=== PATIENT | male | born 1935 | race Caucasian/White ===

== ENCOUNTER 2016-11-17 11:17 | Outpatient (CLI) | payer MEDICARE, OTHER ==
[2013-01-03 09:35] VITALS: BP 111/68
--- NOTE | 2016-11-17 19:06 | Diagnostic Imaging Report ---
LYNDA KEENE [facility] [address] [facility].[address] [address] Report Submission Date: November 17, 2016 4:05:41 PM CDT Patient Study Name: NATALIE KLEIN Date: November 17, 2016 11:39:30 AM CDT Modality Type: CR Gender: M Description: LOWER EXTREMITY : 37 Institution: [facility] Physician: LYNDA KEENE Right knee - three views Clinical history: Fall yesterday. Medial pain. Findings: Examination of the right knee in AP, lateral and sunrise views demonstrates postoperative changes status post right total knee replacement. Prosthetic components are normally seated in the [place] bony structures. There is no evident fracture. Joint effusion distends the suprapatellar bursa. Impression: 1. Joint effusion. 2. Postop replacement. 3. No fracture. Electronically signed on November 17, 2016 4:05:41 PM CDT by: Giuseppe QUINTANILLA
== END 2016-11-17 11:19 ==
LOC: RAD 11:17
PROVIDERS: ATTEND Family Medicine
DX: M25.561 Pain in right knee (principal)
CPT/HCPCS: 73562

== ENCOUNTER 2016-12-09 07:13 | Emergency (ER) | payer MEDICARE, OTHER ==
--- NOTE | 2016-12-09 10:29 | ED Physician Documentation ---
Lower Extremity Problem - HISTORIAN Historian: patient, spouse, child (son) - HPI Stated Complaint: right knee pain Chief Complaint: Lower Extremity Problem Additional Information: Right knee gives way when he tries to walk. Right TKR [address] Oniel Thomas. Pt denies fall to ground. However, notes he fell on November 11 or . She does not know how he landed. Saw Dr. Cool two weeks ago and began PT. Did not keep PT appt last week and cancelled appt today to come to ER. and son report a decrease in activity in general over the last six months. not involved in his care much as she says he doesn't want her to be. Doesn't go to appt's, for example. Doesn't know details of fall because he didn't/doesn't tell her. He has a walker at home, stored in basement since knee replacement. Location of Injury: R knee - ROS CONST: no problems - PAST HX Past History: other (HTN) Surgeries/Procedures: knee surgery (Jorge TKR's) Allergies/Adverse Reactions: Allergies Allergy/AdvReac Type Severity Reaction Status Date / Time No Known Allergies Allergy Verified 12/09/16 07:38 Home Medications: Ambulatory Orders Medication Instructions Recorded Lisinopril/Hydrochlorothiazide 20 mg PO DAILY 12/09/16 [Zestoretic] Piroxicam [Feldene] 10 mg PO DAILY 12/09/16 - SOCIAL HX Smoking History: non-smoker - FAMILY HX Family History: no significant history - VITAL SIGNS Vital Signs: Vital Signs Temp Pulse Resp BP Pulse Ox 111/68 01/03/13 09:31 - REVIEWED ASSESSMENTS Nursing Assessment Reviewed: Yes Vitals Reviewed: Yes Progress - Progress Progress: CT of the right knee Clinical history pain and swelling TECHNIQUE: Helical axial CT of the right knee was performed with sagittal and coronal reconstructions without contrast. FINDINGS: There is a large knee joint effusion. The right knee arthroplasty appears intact. No fracture is identified. Periarticular ossicles or bone fragments are identified but no clear fracture origin is seen. No obvious loosening of the prosthesis is seen. Streak artifact from the arthroplasty somewhat limits evaluation of the knee. Subcutaneous fat infiltration and skin thickening is present around the knee. There is vascular calcification around the knee. . Tibiofibular joint degenerative arthritis is present. IMPRESSION: Intact knee arthroplasty Right KNEE three views History : pain and swelling Technique: AP , LATERAL , SUNRISE Findings: Soft tissue swelling is present. A knee arthroplasty appears intact. Bone fragments are present lateral to the femoral component of the arthroplasty. A knee joint effusion is present. Impression : Joint effusion soft tissue swelling Intact arthroplasty Bone fragments lateral to the femoral component Consider CT for further evaluation Electronically signed on Dec 09, 2016 9:08:16 AM CDT by: Jayy Israel Urine clean. Doesn't remember being seen by provider. Doesn't recall conversations within this visit. Forgot he had right knee replacement though he remembered it earlier in this visit. ED Results Lab/Radiology - Orders Orders: ED Orders Category Date Time Status CT LEG W/O CONTRAST Stat Exams 12/09/16 Ordered KNEE 3 VIEWS [RAD] Stat Exams 12/09/16 Ordered UA [URINALYSIS] Routine Lab 12/09/16 Ordered Lower Extremity Problem - EXAM General Appearance: no distress Legs: bilateral: normal inspection, no evidence of injury Knees: right: joint effusion (cool, no discoloration, not tender to touch), bilateral: other (well healed surgical scars) Ankle: bilateral: no evidence of injury Neuro/Tendon: normal sensation, normal motor functions, no evidence tendon injury EENT: eye inspection normal, ENT inspection normal RESPIRATORY: no resp distress JOINT: effusion (see above) VASCULAR: no vascular compromise NEURO/PSYCH: CN's nml as tested, motor nml, sensation nml, other (one word answers for the most part. little eye contact wiht examiner or family) SKIN: warm/dry, normal color BACK: other (fluid movements w/o pain) Discharge Clincal Impression: Pain and swelling of right knee Referrals: Jl Cool MD [Primary Care Provider] - 2 Days Home Medications: Ambulatory Orders Lisinopril/Hydrochlorothiazide [Zestoretic] 20 mg PO DAILY 12/09/16 Piroxicam [Feldene] 10 mg PO DAILY 12/09/16 Condition: Fair Disposition: 01 HOME, SELF-CARE Decision to Admit: NO Decision Time: 10:25
[2016-12-09 11:00] VITALS: BP 164/77
--- NOTE | 2016-12-09 14:10 | Diagnostic Imaging Report ---
[facility] [address] [facility] [address] [address] Report Submission Date: Dec 09, 2016 9:08:16 AM CDT Patient Study Name: NATALIE KLEIN Date: Dec 09, 2016 7:53:45 AM CDT Modality Type: CR Gender: M Description: LOWER EXTREMITY : 37 Institution: [facility] Physician TERRA MARKHAM - ER Right KNEE three views History : pain and swelling Technique: AP , LATERAL , SUNRISE Findings: Soft tissue swelling is present. A knee arthroplasty appears intact. Bone fragments are present lateral to the femoral component of the arthroplasty. A knee joint effusion is present. Impression : Joint effusion soft tissue swelling Intact arthroplasty Bone fragments lateral to the femoral component Consider CT for further evaluation Electronically signed on Dec 09, 2016 9:08:16 AM CDT by: Jayy QUINTANILLA
--- NOTE | 2016-12-09 14:11 | Diagnostic Imaging Report ---
TERRA MARKHAM [facility] [address] [facility] [address] [place], [place]. [address] Report Submission Date: Dec 09, 2016 10:17:00 AM CDT Patient Study Name: NATALIE KLEIN Date: Dec 09, 2016 9:27:02 AM CDT Modality Type: CT\SR Gender: M Description: CT LEG W/O CONTRAST : 37 Institution: [facility] Physician: TERRA MARKHAM CT of the right knee Clinical history pain and swelling TECHNIQUE: Helical axial CT of the right knee was performed with sagittal and coronal reconstructions without contrast. FINDINGS: There is a large knee joint effusion. The right knee arthroplasty appears intact. No fracture is identified. Periarticular ossicles or bone fragments are identified but no clear fracture origin is seen. No obvious loosening of the prosthesis is seen. Streak artifact from the arthroplasty somewhat limits evaluation of the knee. Subcutaneous fat infiltration and skin thickening is present around the knee. There is vascular calcification around the knee. . Tibiofibular joint degenerative arthritis is present. IMPRESSION: Intact knee arthroplasty Large knee joint effusion Cellulitis Vascular calcification Periarticular bone fragments with no clear origin from the bones around the arthroplasty Electronically signed on Dec 09, 2016 10:17:00 AM CDT by: Jayy QUINTANILLA
== END 2016-12-09 10:40 | disposition home or self-care (01) ==
LOC: ED 07:13
DX: M25.561 Pain in right knee (principal)
CPT/HCPCS: 73562; 73700; 99283

== ENCOUNTER 2016-12-12 10:47 | Outpatient (CLI) | payer MEDICARE, OTHER ==
[2016-12-12 11:32] LABS: eGFR (African) 47; eGFR (Non-African) 39
== END 2016-12-12 10:50 ==
LOC: LAB 10:47
PROVIDERS: ATTEND Family Medicine
DX: M15.9 Polyosteoarthritis, unspecified (principal); I10 Essential (primary) hypertension
CPT/HCPCS: 36415; 80053; 80061

== ENCOUNTER 2017-01-23 08:57 | Outpatient (CLI) | payer MEDICARE, OTHER ==
--- NOTE | 2017-01-23 14:25 | Diagnostic Imaging Report ---
ANNIKA BARRAGAN [facility] [address] [facility] [address] [place] [address]. [address] Report Submission Date: Jan 23, 2017 10:07:35 AM CDT Patient Study Name: NATALIE KLEIN Date: Jan 23, 2017 9:27:23 AM CDT Modality Type: US Gender: M Description: US RETROPERITONEAL LIMIT : 37 Institution: [facility] Physician: ANNIKA BARRAGAN Examination: Ultrasound kidneys History: Chronic renal disease Comparison exams: None available Findings: Right kidney measures 9.4 cm in length. Left kidney measures 9.6 cm in length. No evidence for cortical mass bilaterally. Echogenic cortical margins. No hydronephrosis. Impression: Advanced medical renal disease. No evidence for cortical mass or obstruction. Electronically signed on Jan 23, 2017 10:07:35 AM CDT by: Elroy QUINTANILLA
== END 2017-01-23 09:00 ==
LOC: RAD 08:57
PROVIDERS: ATTEND Internal Medicine Nephrology
DX: N18.9 Chronic kidney disease, unspecified (principal)
CPT/HCPCS: 36415; 76775; 80069; 82306; 83970

== ENCOUNTER 2017-02-14 11:30 | Inpatient (IN) | payer MEDICARE, OTHER ==
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
[2017-02-14] MEDS ORDERED: SENNOSIDES/DOCUSATE SODIUM 1 EACH TABLET PO ONE (14:02)
[2017-02-14 17:21] VITALS: BMI 26.9
[2017-02-14] MEDS: SENNOSIDES/DOCUSATE SODIUM 1 EACH TABLET PO SCH (20:28)
[2017-02-14] MEDS: traMADol HCL 50 MG TABLET PO PRN (23:18)
[2017-02-15] MEDS: PANTOPRAZOLE SODIUM 40 MG TABLET PO SCH (06:17)
[2017-02-15] MEDS: traMADol HCL 50 MG TABLET PO PRN ×3 (06:40→20:47)
[2017-02-15] MEDS: ASPIRIN 325 MG TABLET PO SCH (09:50)
[2017-02-15] MEDS: LISINOPRIL 20 MG TABLET PO SCH (09:51)
[2017-02-15] MEDS: HYDROCHLOROTHIAZIDE 25 MG TABLET PO SCH (09:55)
[2017-02-15] MEDS: SENNOSIDES/DOCUSATE SODIUM 1 EACH TABLET PO SCH (20:47)
[2017-02-16] MEDS: traMADol HCL 50 MG TABLET PO PRN ×5 (01:48→20:33)
[2017-02-16] MEDS ORDERED: LISINOPRIL 20 MG TABLET ONE (04:05)
[2017-02-16] MEDS: PANTOPRAZOLE SODIUM 40 MG TABLET PO SCH (05:42)
[2017-02-16 07:21] LABS: BASOPHILS % 0.7 (0.0-1.5); EOSINOPHILS % 3.4 % (0.0-6.8); MEAN CORPUSCULAR HEMOGLOBIN 30.5 pg (28.0-34.0); MEAN CORPUSCULAR VOLUME 94.8 fl (80.0-100.0); NEUTROPHILS # 10.5 # k/uL (1.4-7.7)
[2017-02-16 07:28] LABS: eGFR (African) > 60; eGFR (Non-African) 56
[2017-02-16] MEDS: HYDROCHLOROTHIAZIDE 25 MG TABLET PO SCH (08:21)
[2017-02-16] MEDS: ASPIRIN 325 MG TABLET PO SCH (08:21)
[2017-02-16] MEDS: LISINOPRIL 20 MG TABLET PO SCH (08:21)
[2017-02-16] MEDS: SENNOSIDES/DOCUSATE SODIUM 1 EACH TABLET PO SCH (20:33)
[2017-02-17] MEDS: PANTOPRAZOLE SODIUM 40 MG TABLET PO SCH (06:05)
[2017-02-17] MEDS: traMADol HCL 50 MG TABLET PO PRN ×3 (06:14→19:03)
[2017-02-17] MEDS: LISINOPRIL 20 MG TABLET PO SCH (08:48)
[2017-02-17] MEDS: ASPIRIN 325 MG TABLET PO SCH (08:49)
[2017-02-17] MEDS: HYDROCHLOROTHIAZIDE 25 MG TABLET PO SCH (08:49)
[2017-02-17] MEDS: SENNOSIDES/DOCUSATE SODIUM 1 EACH TABLET PO SCH (19:06)
[2017-02-18] MEDS: traMADol HCL 50 MG TABLET PO PRN ×2 (01:37→20:57)
[2017-02-18] MEDS: PANTOPRAZOLE SODIUM 40 MG TABLET PO SCH (06:26)
[2017-02-18] MEDS: ASPIRIN 325 MG TABLET PO SCH (09:28)
[2017-02-18] MEDS: LISINOPRIL 20 MG TABLET PO SCH (09:29)
[2017-02-18] MEDS: HYDROCHLOROTHIAZIDE 25 MG TABLET PO SCH (09:29)
[2017-02-18] MEDS: SENNOSIDES/DOCUSATE SODIUM 1 EACH TABLET PO SCH (20:57)
[2017-02-19] MEDS: PANTOPRAZOLE SODIUM 40 MG TABLET PO SCH (06:26)
[2017-02-19] MEDS: ASPIRIN 325 MG TABLET PO SCH (09:29)
[2017-02-19] MEDS: HYDROCHLOROTHIAZIDE 25 MG TABLET PO SCH (09:34)
[2017-02-19] MEDS: LISINOPRIL 20 MG TABLET PO SCH (09:34)
[2017-02-19] MEDS: SENNOSIDES/DOCUSATE SODIUM 1 EACH TABLET PO SCH (20:08)
[2017-02-19] MEDS: traMADol HCL 50 MG TABLET PO PRN (20:08)
[2017-02-20] MEDS: traMADol HCL 50 MG TABLET PO PRN ×3 (00:50→22:50)
[2017-02-20] MEDS: PANTOPRAZOLE SODIUM 40 MG TABLET PO SCH (06:32)
[2017-02-20] MEDS: ASPIRIN 325 MG TABLET PO SCH (08:10)
[2017-02-20] MEDS: LISINOPRIL 20 MG TABLET PO SCH (08:10)
[2017-02-20] MEDS: HYDROCHLOROTHIAZIDE 25 MG TABLET PO SCH ×2 (08:10→08:11)
[2017-02-20] MEDS: SENNOSIDES/DOCUSATE SODIUM 1 EACH TABLET PO SCH (20:03)
[2017-02-21] MEDS: PANTOPRAZOLE SODIUM 40 MG TABLET PO SCH (06:11)
[2017-02-21] MEDS: ASPIRIN 325 MG TABLET PO SCH (10:20)
[2017-02-21] MEDS: HYDROCHLOROTHIAZIDE 25 MG TABLET PO SCH (10:21)
[2017-02-21] MEDS: LISINOPRIL 20 MG TABLET PO SCH (10:21)
[2017-02-21] MEDS: SENNOSIDES/DOCUSATE SODIUM 1 EACH TABLET PO SCH (20:18)
[2017-02-22] MEDS: PANTOPRAZOLE SODIUM 40 MG TABLET PO SCH (06:11)
--- NOTE | 2017-02-22 08:05 | Inpatient Progress Note ---
Subjective - Required Recertification Statement I anticipate X number of days because-include discharge plan: 7 days - Review of Systems Events since last encounter: Patient has a fall last noc, states that he slipped on the floor. He does not relate any injuries at this time. States that he is having little pain at this time. PT and OT seem to be going well. Appeitite has been good, is having BMs. Has been having some confusion at night. HEENT: Denies: Head Aches Pulmonary: Denies: Dyspnea Cardiovascular: Denies: Chest Pain Gastrointestinal: Denies: Nausea, Vomiting Genitourinary: Denies: Dysuria, Frequency Musculoskeletal: Leg Pain. Denies: Neck Pain, Shoulder Pain, Arm Pain, Back Pain Objective - Exam Vitals and I&O: Vital Signs Temp 97.9 F 02/21/17 20:44 Pulse 96 H 02/21/17 20:44 Resp 18 02/21/17 20:44 BP 121/82 02/21/17 20:44 Pulse Ox 97 02/21/17 20:44 Intake & Output 02/21/17 02/21/17 02/22/17 11:59 23:59 11:59 Intake Total 240 240 Output Total 400 Balance 240 240 -400 Intake: Oral 240 240 Output: Urine 400 Other: Voiding Method Toilet Toilet # Voids 2 General: Alert, Oriented to Person, Oriented to Place, Cooperative, No acute distress. No: Oriented to Time Neck: Supple, No JVD Lungs: Clear to auscultation, Normal air movement, Speaks full Sentences. No: Wheezes, Rales, Rhonchi Cardiovascular: Regular rate, Normal S1, Normal S2, No murmurs Abdomen: Normal bowel sounds, Soft, No tenderness, No hepatospenomegaly, No masses Extremities: No clubbing, No cyanosis, Other (edema mild bilateral, more on the right, incision looks clean and dry.) Skin: Normal, [place], Warm, Dry Neurological: Normal speech, Strength Equal Bilat, Normal tone Psych/Mental Status: Mood NL, Appropriate Affect. No: Intact Judgment - Results Results: Laboratory Results WBC 13.60 K/ul (4.00-12.00) H 02/16/17 06:40 RBC 3.83 M/ul (3.90-5.20) L 02/16/17 06:40 Hgb 11.7 g/dL (12.0-18.0) L 02/16/17 06:40 Hct 36.3 % (37.0-53.0) L 02/16/17 06:40 MCV 94.8 fl (80.0-100.0) 02/16/17 06:40 MCH 30.5 pg (28.0-34.0) 02/16/17 06:40 MCHC 32.2 g/dL (30.0-36.0) 02/16/17 06:40 RDW 13.9 % (11.3-14.3) 02/16/17 06:40 Plt Count 344 K/mm3 (130-400) 02/16/17 06:40 Neut % (Auto) 77.2 % (39.0-79.0) 02/16/17 06:40 Lymph % (Auto) 12.5 % (16.0-50.0) L 02/16/17 06:40 [place] % (Auto) 5.0 % (0.0-11.0) 02/16/17 06:40 Eos % (Auto) 3.4 % (0.0-6.8) 02/16/17 06:40 Baso % (Auto) 0.7 (0.0-1.5) 02/16/17 06:40 Neut # (Auto) 10.5 # k/uL (1.4-7.7) H 02/16/17 06:40 Lymph # (Auto) 1.7 # k/uL (0.6-4.0) 02/16/17 06:40 [place] # (Auto) 0.7 # k/uL (0.0-0.9) 02/16/17 06:40 Eos # (Auto) 0.5 # k/uL (0.0-0.6) 02/16/17 06:40 Baso # (Auto) 0.1 # k/uL (0.0-0.5) 02/16/17 06:40 Reactive Lymphs % 1.2 % (0.0-5.0) 02/16/17 06:40 Reactive Lymphs # 0.2 # k/uL (0.0-0.8) 02/16/17 06:40 Sodium 135 mmol/L (136-145) L 02/16/17 06:40 Potassium 4.2 mmol/L (3.5-5.0) 02/16/17 06:40 Chloride 102 mmol/L (98-110) 02/16/17 06:40 Carbon Dioxide 27 mmol/L (20-32) 02/16/17 06:40 BUN 25 mg/dL (10-26) 02/16/17 06:40 Creatinine 1.3 mg/dL (0.4-1.5) 02/16/17 06:40 Estimated Creat Clear 52 02/16/17 06:40 Est GFR ( Amer) > 60 (60-) 02/16/17 06:40 Est GFR (Non-Af Amer) 56 (60-) L 02/16/17 06:40 Glucose 97 mg/dL (70-99) 02/16/17 06:40 Calcium 9.0 mg/dL (8.5-10.5) 02/16/17 06:40 Total Bilirubin 0.4 mg/dL (0.2-1.2) 02/16/17 06:40 AST 19 U/L (0-41) 02/16/17 06:40 ALT 10 U/L (0-45) 02/16/17 06:40 Alkaline Phosphatase 77 U/L (46-116) 02/16/17 06:40 Total Protein 6.2 g/dL (6.0-8.5) 02/16/17 06:40 Albumin 3.8 g/dL (3.0-5.5) 02/16/17 06:40 Assessment/Plan - Assessment/Plan (1) Gait disturbance Status: Acute Current Visit: Yes Assessment: Seems to be making progress with PT and OT (2) S/P total knee arthroplasty Status: Acute Current Visit: Yes Assessment: stable (3) Essential hypertension Status: Acute Current Visit: Yes Assessment: stable
[2017-02-22] MEDS: ASPIRIN 325 MG TABLET PO SCH (08:50)
[2017-02-22] MEDS: LISINOPRIL 20 MG TABLET PO SCH (08:50)
[2017-02-22] MEDS: HYDROCHLOROTHIAZIDE 25 MG TABLET PO SCH (08:50)
[2017-02-22] MEDS: SENNOSIDES/DOCUSATE SODIUM 1 EACH TABLET PO SCH (19:28)
[2017-02-22] MEDS: traMADol HCL 50 MG TABLET PO PRN (21:34)
--- NOTE | 2017-02-22 22:08 | Diagnostic Imaging Report ---
[facility] [address] [facility] [address] [place], [place]. [address] Report Submission Date: Feb 22, 2017 5:57:32 PM CDT Patient Study Name: NATLAIE KLEIN Date: Feb 22, 2017 5:34:10 PM CDT Modality Type: CT\SR Gender: M Description: CT BRAIN W/O CONTRAST : 37 Institution: [facility] Physician: [facility] Examination: CT head without contrast History: Fall Comparison exam: None available Technique: Noncontrast head CT protocol. Findings: Ventricles and sulci are prominent, though consistent for patient age. Cerebrocerebellar parenchyma demonstrates mild periventricular low attenuation consistent with small vessel disease. No evidence for parenchymal hemorrhage. No evidence for mass or mass effect. No midline shift. No extra axial fluid collections. Partial visualization of the paranasal sinuses demonstrates right sphenoid sinus mucus thickening. Mastoid air cells, orbits, skull and scalp without gross regularity. Impression: Age related changes. No acute parenchymal process. No hemorrhage. Electronically signed on Feb 22, 2017 5:57:32 PM CDT by: Elroy QUINTANILLA
[2017-02-23] MEDS: PANTOPRAZOLE SODIUM 40 MG TABLET PO SCH (06:36)
[2017-02-23] MEDS: LISINOPRIL 20 MG TABLET PO SCH (07:57)
[2017-02-23] MEDS: HYDROCHLOROTHIAZIDE 25 MG TABLET PO SCH (07:57)
[2017-02-23] MEDS: ASPIRIN 325 MG TABLET PO SCH (07:57)
[2017-02-23] MEDS: ACETAMINOPHEN 500 MG TABLET PO SCH ×2 (11:29→21:15)
[2017-02-23] MEDS: SENNOSIDES/DOCUSATE SODIUM 1 EACH TABLET PO SCH (21:14)
[2017-02-24] MEDS: traMADol HCL 50 MG TABLET PO PRN (05:19)
[2017-02-24] MEDS: PANTOPRAZOLE SODIUM 40 MG TABLET PO SCH (05:19)
[2017-02-24] MEDS: HYDROCHLOROTHIAZIDE 25 MG TABLET PO SCH (09:01)
[2017-02-24] MEDS: ACETAMINOPHEN 500 MG TABLET PO SCH ×2 (09:01→19:48)
[2017-02-24] MEDS: ASPIRIN 325 MG TABLET PO SCH (09:01)
[2017-02-24] MEDS: LISINOPRIL 20 MG TABLET PO SCH (09:01)
[2017-02-24] MEDS: SENNOSIDES/DOCUSATE SODIUM 1 EACH TABLET PO SCH (19:48)
[2017-02-25] MEDS: PANTOPRAZOLE SODIUM 40 MG TABLET PO SCH (06:11)
[2017-02-25] MEDS: ASPIRIN 325 MG TABLET PO SCH (10:05)
[2017-02-25] MEDS: HYDROCHLOROTHIAZIDE 25 MG TABLET PO SCH (10:06)
[2017-02-25] MEDS: LISINOPRIL 20 MG TABLET PO SCH (10:06)
[2017-02-25] MEDS: ACETAMINOPHEN 500 MG TABLET PO SCH ×2 (10:07→19:39)
[2017-02-25] MEDS: SENNOSIDES/DOCUSATE SODIUM 1 EACH TABLET PO SCH (19:39)
[2017-02-26] MEDS: ASPIRIN 325 MG TABLET PO SCH (06:05)
[2017-02-26] MEDS: ACETAMINOPHEN 500 MG TABLET PO SCH ×2 (06:05→20:13)
[2017-02-26] MEDS: HYDROCHLOROTHIAZIDE 25 MG TABLET PO SCH (06:06)
[2017-02-26] MEDS: LISINOPRIL 20 MG TABLET PO SCH (06:06)
[2017-02-26] MEDS: PANTOPRAZOLE SODIUM 40 MG TABLET PO SCH (06:06)
[2017-02-26] MEDS: traMADol HCL 50 MG TABLET PO PRN (11:43)
[2017-02-26] MEDS: SENNOSIDES/DOCUSATE SODIUM 1 EACH TABLET PO SCH (20:13)
[2017-02-27] MEDS: PANTOPRAZOLE SODIUM 40 MG TABLET PO SCH (06:10)
[2017-02-27] MEDS: LISINOPRIL 20 MG TABLET PO SCH (09:11)
[2017-02-27] MEDS: ACETAMINOPHEN 500 MG TABLET PO SCH ×2 (09:11→19:47)
[2017-02-27] MEDS: ASPIRIN 325 MG TABLET PO SCH (09:11)
[2017-02-27] MEDS: HYDROCHLOROTHIAZIDE 25 MG TABLET PO SCH (09:11)
[2017-02-27] MEDS: traMADol HCL 50 MG TABLET PO PRN (17:55)
[2017-02-27] MEDS: SENNOSIDES/DOCUSATE SODIUM 1 EACH TABLET PO SCH (19:47)
[2017-02-28] MEDS: PANTOPRAZOLE SODIUM 40 MG TABLET PO SCH (05:56)
[2017-02-28] MEDS: ASPIRIN 325 MG TABLET PO SCH (08:41)
[2017-02-28] MEDS: HYDROCHLOROTHIAZIDE 25 MG TABLET PO SCH (08:41)
[2017-02-28] MEDS: LISINOPRIL 20 MG TABLET PO SCH (08:41)
[2017-02-28] MEDS: ACETAMINOPHEN 500 MG TABLET PO SCH ×2 (08:42→20:36)
[2017-02-28] MEDS: SENNOSIDES/DOCUSATE SODIUM 1 EACH TABLET PO SCH (20:36)
[2017-03-01] MEDS: PANTOPRAZOLE SODIUM 40 MG TABLET PO SCH (06:23)
[2017-03-01] MEDS: HYDROCHLOROTHIAZIDE 25 MG TABLET PO SCH (09:58)
[2017-03-01] MEDS: LISINOPRIL 20 MG TABLET PO SCH (09:58)
[2017-03-01] MEDS: ASPIRIN 325 MG TABLET PO SCH (09:58)
[2017-03-01] MEDS: ACETAMINOPHEN 500 MG TABLET PO SCH ×2 (10:00→19:30)
[2017-03-01] MEDS: SENNOSIDES/DOCUSATE SODIUM 1 EACH TABLET PO SCH (19:30)
[2017-03-02] MEDS: PANTOPRAZOLE SODIUM 40 MG TABLET PO SCH (06:05)
[2017-03-02] MEDS: ACETAMINOPHEN 500 MG TABLET PO SCH ×2 (09:39→20:04)
[2017-03-02] MEDS: LISINOPRIL 20 MG TABLET PO SCH (09:39)
[2017-03-02] MEDS: ASPIRIN 325 MG TABLET PO SCH (09:39)
[2017-03-02] MEDS: HYDROCHLOROTHIAZIDE 25 MG TABLET PO SCH (09:39)
[2017-03-02] MEDS: SENNOSIDES/DOCUSATE SODIUM 1 EACH TABLET PO SCH (20:03)
[2017-03-03] MEDS: PANTOPRAZOLE SODIUM 40 MG TABLET PO SCH (05:48)
[2017-03-03] MEDS: ASPIRIN 325 MG TABLET PO SCH (08:10)
[2017-03-03] MEDS: HYDROCHLOROTHIAZIDE 25 MG TABLET PO SCH (08:11)
[2017-03-03] MEDS: ACETAMINOPHEN 500 MG TABLET PO SCH ×2 (08:11→19:34)
[2017-03-03] MEDS: LISINOPRIL 20 MG TABLET PO SCH (08:11)
[2017-03-03] MEDS: traMADol HCL 50 MG TABLET PO PRN (10:21)
[2017-03-03] MEDS: SENNOSIDES/DOCUSATE SODIUM 1 EACH TABLET PO SCH (19:34)
[2017-03-04] MEDS ORDERED: ACETAMINOPHEN 500 MG TABLET ONE (04:41)
[2017-03-04] MEDS: PANTOPRAZOLE SODIUM 40 MG TABLET PO SCH (06:24)
[2017-03-04] MEDS: HYDROCHLOROTHIAZIDE 25 MG TABLET PO SCH (09:08)
[2017-03-04] MEDS: ASPIRIN 325 MG TABLET PO SCH (09:08)
[2017-03-04] MEDS: LISINOPRIL 20 MG TABLET PO SCH (09:09)
[2017-03-04] MEDS: ACETAMINOPHEN 500 MG TABLET PO SCH ×2 (09:09→20:40)
[2017-03-04] MEDS: SENNOSIDES/DOCUSATE SODIUM 1 EACH TABLET PO SCH (20:40)
[2017-03-05] MEDS: PANTOPRAZOLE SODIUM 40 MG TABLET PO SCH (06:21)
[2017-03-05] MEDS: HYDROCHLOROTHIAZIDE 25 MG TABLET PO SCH (08:26)
[2017-03-05] MEDS: ASPIRIN 325 MG TABLET PO SCH (08:26)
[2017-03-05] MEDS: ACETAMINOPHEN 500 MG TABLET PO SCH ×2 (08:26→20:33)
[2017-03-05] MEDS: LISINOPRIL 20 MG TABLET PO SCH (08:26)
[2017-03-05] MEDS: SENNOSIDES/DOCUSATE SODIUM 1 EACH TABLET PO SCH (20:34)
[2017-03-06] MEDS ORDERED: PHARMACY KEY 1 EACH EACH MC ONE (05:29)
[2017-03-06] MEDS: PANTOPRAZOLE SODIUM 40 MG TABLET PO SCH (06:02)
[2017-03-06] MEDS: ASPIRIN 325 MG TABLET PO SCH (09:39)
[2017-03-06] MEDS: LISINOPRIL 20 MG TABLET PO SCH (09:39)
[2017-03-06] MEDS: HYDROCHLOROTHIAZIDE 25 MG TABLET PO SCH (09:39)
[2017-03-06] MEDS: ACETAMINOPHEN 500 MG TABLET PO SCH ×2 (09:39→20:26)
[2017-03-06] MEDS: SENNOSIDES/DOCUSATE SODIUM 1 EACH TABLET PO SCH (20:26)
[2017-03-07] MEDS: PANTOPRAZOLE SODIUM 40 MG TABLET PO SCH (06:09)
[2017-03-07] MEDS: ACETAMINOPHEN 500 MG TABLET PO SCH ×2 (09:17→19:42)
[2017-03-07] MEDS: LISINOPRIL 20 MG TABLET PO SCH (09:17)
[2017-03-07] MEDS: HYDROCHLOROTHIAZIDE 25 MG TABLET PO SCH (09:17)
[2017-03-07] MEDS: ASPIRIN 325 MG TABLET PO SCH (09:17)
[2017-03-07] MEDS: SENNOSIDES/DOCUSATE SODIUM 1 EACH TABLET PO SCH (19:42)
[2017-03-08] MEDS: PANTOPRAZOLE SODIUM 40 MG TABLET PO SCH (06:00)
[2017-03-08] MEDS: ASPIRIN 325 MG TABLET PO SCH (08:20)
[2017-03-08] MEDS: LISINOPRIL 20 MG TABLET PO SCH (08:20)
[2017-03-08] MEDS: HYDROCHLOROTHIAZIDE 25 MG TABLET PO SCH (08:20)
[2017-03-08] MEDS: ACETAMINOPHEN 500 MG TABLET PO SCH ×2 (08:20→20:07)
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
[2017-03-08 12:04] LABS: BASOPHILS % 0.5 (0.0-1.5); EOSINOPHILS % 3.2 % (0.0-6.8); MEAN CORPUSCULAR HEMOGLOBIN 29.3 pg (28.0-34.0); MONOCYTES % 4.1 % (0.0-11.0)
[2017-03-08 13:27] LABS: APPEARANCE,URINE Clear (CLEAR); COLOR,URINE Yellow (YELLOW); OCCULT BLOOD,URINE Negative (NEGATIVE); UROBILINOGEN URINE 0.2 Eu (0.2-1.0)
[2017-03-08 13:35] LABS: AMORPHOUS SEDIMENT,UR FEW (NEGATIVE)
[2017-03-08] MEDS: SENNOSIDES/DOCUSATE SODIUM 1 EACH TABLET PO SCH (20:07)
[2017-03-09] MEDS: PANTOPRAZOLE SODIUM 40 MG TABLET PO SCH (06:14)
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
[2017-03-09] MEDS: ACETAMINOPHEN 500 MG TABLET PO SCH (08:58)
[2017-03-09] MEDS: HYDROCHLOROTHIAZIDE 25 MG TABLET PO SCH (08:58)
[2017-03-09] MEDS: ASPIRIN 325 MG TABLET PO SCH (08:58)
[2017-03-09] MEDS: LISINOPRIL 20 MG TABLET PO SCH (08:58)
[2017-03-09 13:45] VITALS: BP 107/58
--- NOTE | 2017-03-21 17:17 | Inpatient Progress Note ---
Subjective - Required Recertification Statement I anticipate X number of days because-include discharge plan: 14 days - Review of Systems Events since last encounter: Patient has been doing fairly well simply last visit. Patient has been having some episode where he becomes upset about different things. Patient had a little bit more difficulty in participating with physical and occupational therapy when he is upset. Patient states it is having minimal pain associated with his revision. Hypertension has been stable without any chest pain chest pressure TIA or CVA symptom. Cardiovascular: Denies: Chest Pain, Palpitations Gastrointestinal: Denies: Nausea, Vomiting, Abdominal Pain, Constipation Objective - Exam Vitals and I&O: Vital Signs Temp 97.7 F 03/09/17 09:00 Pulse 104 H 03/09/17 09:00 Resp 18 03/09/17 09:00 BP 141/79 03/09/17 09:00 Pulse Ox 99 03/09/17 09:00 General: Alert, Oriented to Person, Oriented to Place, No acute distress. No: Oriented to Time Neck: Supple, No JVD Lungs: Clear to auscultation, Normal air movement, Speaks full Sentences. No: Wheezes, Rales, Rhonchi Cardiovascular: Regular rate, Normal S1, Normal S2, No murmurs Abdomen: Normal bowel sounds, Soft, No tenderness, No hepatospenomegaly, No masses Extremities: Other (edema to the right leg). No: No clubbing Skin: Normal, [place], Warm, Dry Neurological: Normal speech, Strength Equal Bilat. No: Normal gait Psych/Mental Status: Appropriate Affect (agitated). No: Intact Judgment - Results Results: Laboratory Results WBC 11.70 K/ul (4.00-12.00) 03/08/17 11:45 RBC 3.66 M/ul (3.90-5.20) L 03/08/17 11:45 Hgb 10.7 g/dL (12.0-18.0) L 03/08/17 11:45 Hct 34.4 % (37.0-53.0) L 03/08/17 11:45 MCV 94.0 fl (80.0-100.0) 03/08/17 11:45 MCH 29.3 pg (28.0-34.0) 03/08/17 11:45 MCHC 31.2 g/dL (30.0-36.0) 03/08/17 11:45 RDW 13.5 % (11.3-14.3) 03/08/17 11:45 Plt Count 338 K/mm3 (130-400) 03/08/17 11:45 Neut % (Auto) 77.0 % (39.0-79.0) 03/08/17 11:45 Lymph % (Auto) 14.0 % (16.0-50.0) L 03/08/17 11:45 [place] % (Auto) 4.1 % (0.0-11.0) 03/08/17 11:45 Eos % (Auto) 3.2 % (0.0-6.8) 03/08/17 11:45 Baso % (Auto) 0.5 (0.0-1.5) 03/08/17 11:45 Neut # (Auto) 9.0 # k/uL (1.4-7.7) H 03/08/17 11:45 Lymph # (Auto) 1.6 # k/uL (0.6-4.0) 03/08/17 11:45 [place] # (Auto) 0.5 # k/uL (0.0-0.9) 03/08/17 11:45 Eos # (Auto) 0.4 # k/uL (0.0-0.6) 03/08/17 11:45 Baso # (Auto) 0.1 # k/uL (0.0-0.5) 03/08/17 11:45 Reactive Lymphs % 1.2 % (0.0-5.0) 03/08/17 11:45 Reactive Lymphs # 0.1 # k/uL (0.0-0.8) 03/08/17 11:45 Sodium 143 mmol/L (136-145) 03/08/17 11:45 Potassium 4.8 mmol/L (3.5-5.0) 03/08/17 11:45 Chloride 111 mmol/L (98-110) H 03/08/17 11:45 Carbon Dioxide 26 mmol/L (20-32) 03/08/17 11:45 BUN 30 mg/dL (10-26) H 03/08/17 11:45 Creatinine 1.9 mg/dL (0.4-1.5) H 03/08/17 11:45 Estimated Creat Clear 38 03/08/17 11:45 Est GFR ( Amer) 44 (60-) L 03/08/17 11:45 Est GFR (Non-Af Amer) 36 (60-) L 03/08/17 11:45 Glucose 96 mg/dL (70-99) 03/08/17 11:45 Calcium 9.2 mg/dL (8.5-10.5) 03/08/17 11:45 Total Bilirubin 0.1 mg/dL (0.2-1.2) L 03/08/17 11:45 AST 15 U/L (0-41) 03/08/17 11:45 ALT 9 U/L (0-45) 03/08/17 11:45 Alkaline Phosphatase 98 U/L (46-116) 03/08/17 11:45 Total Protein 6.2 g/dL (6.0-8.5) 03/08/17 11:45 Albumin 3.6 g/dL (3.0-5.5) 03/08/17 11:45 Urine Color Yellow (YELLOW) 03/08/17 13:25 Urine Appearance Clear (CLEAR) 03/08/17 13:25 Urine pH 6.0 (5.0 - 8.0) 03/08/17 13:25 Ur Specific [place] 1.020 (1.010-1.030) 03/08/17 13:25 Urine Protein 2+ mg/dL (NEGATIVE) H 03/08/17 13:25 Urine Ketones Negative mg/dL (NEGATIVE) 03/08/17 13:25 Urine Occult Blood Negative (NEGATIVE) 03/08/17 13:25 Urine Nitrite Negative (NEGATIVE) 03/08/17 13:25 Urine Bilirubin Negative (NEGATIVE) 03/08/17 13:25 Urine Urobilinogen 0.2 Eu (0.2-1.0) 03/08/17 13:25 Ur Leukocyte Esterase Negative (NEGATIVE) 03/08/17 13:25 Urine RBC 0-2 (0-2 HPF) 03/08/17 13:25 Urine WBC 0-2 (0-5 HPF) 03/08/17 13:25 Amorphous Sediment Few (NEGATIVE) H 03/08/17 13:25 Urine Glucose Negative mg/dL (NEGATIVE) 03/08/17 13:25 Assessment/Plan - Assessment/Plan (1) Gait disturbance Status: Acute Assessment: improved (2) S/P total knee arthroplasty Status: Acute Assessment: stable (3) Essential hypertension Status: Acute Assessment: stable (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
== END 2017-03-09 11:15 | disposition home or self-care (01) | DRG 93 ==
LOC: SOUTH 11:30
PROVIDERS: ADMIT Family Medicine; ATTEND Family Medicine
DX: R26.9 Unspecified abnormalities of gait and mobility (principal); Z96.651 Presence of right artificial knee joint; I10 Essential (primary) hypertension; F03.90 Unspecified dementia, unspecified severity, without behavioral disturbance, psychotic disturbance, mood disturbance, and anxiety
CPT/HCPCS: 36415; 70450; 80053; 81002; 85025; 92507; 92521; 97110; 97112; 97116; 97165; 97530; 97535; A9270; G9169

== ENCOUNTER 2019-01-01 07:32 | Outpatient (CLI) | payer MEDICARE, OTHER ==
[2019-01-01 07:35] LABS: eGFR (Non-African) 46
== END 2019-01-01 07:34 ==
LOC: LAB 07:32
PROVIDERS: ATTEND Family Medicine
DX: I12.9 Hypertensive chronic kidney disease with stage 1 through stage 4 chronic kidney disease, or unspecified chronic kidney disease (principal); N18.9 Chronic kidney disease, unspecified
CPT/HCPCS: 36415; 80053; 83880

== ENCOUNTER 2019-01-08 07:30 | Outpatient (CLI) | payer MEDICARE, OTHER ==
[2019-01-08 08:30] LABS: eGFR (Non-African) 47
== END 2019-01-08 07:33 ==
LOC: LAB 07:30
PROVIDERS: ATTEND Family Medicine
DX: N18.9 Chronic kidney disease, unspecified (principal); E78.5 Hyperlipidemia, unspecified; G30.1 Alzheimer's disease with late onset
CPT/HCPCS: 80048

== ENCOUNTER 2019-01-22 07:50 | Outpatient (CLI) | payer MEDICARE, OTHER | END 2019-01-22 07:52 | LOC: LAB 07:50 | PROVIDERS: ATTEND Family Medicine | DX: E11.22 Type 2 diabetes mellitus with diabetic chronic kidney disease (principal); N18.9 Chronic kidney disease, unspecified; E78.5 Hyperlipidemia, unspecified | CPT/HCPCS: 84132 ==

== ENCOUNTER 2019-03-04 13:05 | Outpatient (CLI) | payer MEDICARE, OTHER ==
[2019-03-04 13:37] LABS: eGFR (Non-African) 35
[2019-03-04 13:46] LABS: BASOPHILS % 1.5 % (0.0-1.5); NEUTROPHILS # 14.7 # k/uL (1.4-7.7); SEGMENTED NEUTROPHILS % 54 % (39-79)
--- NOTE | 2019-03-06 12:57 | Diagnostic Imaging Report ---
LYNDA KEENE [facility] [address] [facility] [address] [place] [address]. [id number] Report Submission Date: Mar 04, 2019 2:06:55 PM CDT Patient Study Name: NATALIE KLEIN Date: Mar 04, 2019 1:12:47 PM CDT Modality Type: DX Gender: M Description: CHEST 2VIEW : 37 Institution: [facility] Physician: LYNDA KEENE PA and lateral chest History: Cough PA and lateral chest dated March 04, 2019 is without prior radiographs for comparison. Patchy regions of airspace disease are present involving the mid and lower left lung and perhaps mildly at the right lower lobe. These findings are most consistent with pneumonia. No pleural effusion is noted. There is metallic shrapnel projecting in the right axilla. Heart size is within normal limits and mild aortic atherosclerosis is present. Impression: Patchy regions of airspace disease are present at the mid and lower left lung and perhaps slightly at the right lower lobe. These findings are most consistent with pneumonia. Electronically signed on Mar 04, 2019 2:06:55 PM CDT by: Sandra QUINTANILLA
== END 2019-03-04 13:07 ==
LOC: LAB 13:05
PROVIDERS: ATTEND Family Medicine
DX: M25.569 Pain in unspecified knee (principal); I12.9 Hypertensive chronic kidney disease with stage 1 through stage 4 chronic kidney disease, or unspecified chronic kidney disease; N18.9 Chronic kidney disease, unspecified; R45.851 Suicidal ideations; M10.9 Gout, unspecified; H91.90 Unspecified hearing loss, unspecified ear; G30.9 Alzheimer's disease, unspecified; F02.81 Dementia in other diseases classified elsewhere, unspecified severity, with behavioral disturbance; Z96.659 Presence of unspecified artificial knee joint; Z98.890 Other specified postprocedural states
CPT/HCPCS: 36415; 71046; 80053; 85025

== ENCOUNTER 2019-04-09 05:50 | Outpatient (CLI) | payer MEDICARE, OTHER ==
[2019-04-09 09:16] LABS: eGFR (Non-African) 54
== END 2019-04-09 06:05 ==
LOC: LAB 05:50
PROVIDERS: ATTEND Family Medicine
DX: I12.9 Hypertensive chronic kidney disease with stage 1 through stage 4 chronic kidney disease, or unspecified chronic kidney disease (principal); N18.9 Chronic kidney disease, unspecified
CPT/HCPCS: 36415; 80053